=== PATIENT | female | born 1970 | race Hispanic/Latino ===

== ENCOUNTER 2018-02-07 13:38 | Outpatient (CLI) | payer OTHER ==
--- NOTE | 2018-02-07 14:55 | XRay Report ---
Right knee: Pain. There is significant narrowing of the medial joint compartment and there are articular spurs predominantly affecting the medial femoral condyle. The articular surfaces are smooth. There is relatively normal alignment of the knee. The bones are well-mineralized. No swelling and no joint effusion identified. Impression: Degenerative medial compartment changes.
== END 2018-02-07 13:39 | disposition home or self-care (01) ==
LOC: SPVIMAG 13:38
PROVIDERS: ATTEND Orthopaedic Surgery
DX: M17.11 Unilateral primary osteoarthritis, right knee (principal)